=== PATIENT | male | born 1970 | race African-American/Black ===

== ENCOUNTER 2022-11-24 02:19 | Day surgery (SDC) | payer OTHER, SELFPAY ==
[2022-11-23 10:23] VITALS: BMI 50.7
[2022-11-24 07:35] VITALS: BP 152/67; PULSE 66; RESP 18; TEMP 36.1; O2SAT 100; BMI 50.7
--- NOTE | 2022-11-24 07:42 | WPDANESEPPF ---
Anes - Initial Pre Proc Eval Procedure: Operation Date: 11/24/22 08:45 Proposed Procedures p Esophagogastroduodenoscopy & Colonoscopy - William Silverio MD Date/Time: 11/24/22 07:42 Surgeon: William Silverio MD Pre Op Diagnosis: melena, anemia Patient Data Age: 52 Gender: M Height: 1.98 m Weight: 199 kg Allergies Allergy/AdvReac Type Severity Reaction Status Date / Time No Known Allergies Allergy Verified 11/24/22 07:42 Home Medications Medication Instructions Recorded Confirmed Type albuterol sulfate 90 mcg/actuation 2 puff inhalation QID PRN asthma 11/23/22 11/24/22 History aerosol inhaler attack hydrochlorothiazide 25 mg tablet 25 mg PO DAILY 11/23/22 11/24/22 History latanoprost 0.005 % eye drops 1 drp EACH EYE QPM 11/23/22 11/24/22 History lisinopril 20 mg tablet 20 mg PO DAILY 11/23/22 11/24/22 History Patient hx anesthesia problems: none Family hx anesthesia problems: none Results Review: All pre-operative results and documents have been reviewed as part of the pre-operative evaluation. [facility] Past Medical History Medical History (Updated 11/24/22 @ 07:43 by Eduard Dietz MD) Arthritis Asthma Glaucoma HTN (hypertension) Morbid obesity with BMI of 50.0-59.9, adult MIKKI (obstructive sleep apnea) Social History Social History (System 09/10/22 @ 10:28 by Naila Dior) Smoking status: Unknown if ever smoked Substance use: former Substance use type: crack/cocaine Living arrangements: incarcerated Anes - Eval Final PreProcedure Day of Procedure 11/24/22 07:42 Patient weight: morbidly obese Heart: regular rate and rhythm Lungs: clear to auscultation and normal air movement Airway: Mallampati scale class II Neurological: alert and oriented Last oral intake: >/= 8 hours ASA classification: IV Emergent: no Anesthetic plan: proceed Anesthesia type and monitoring: general GIVS Results Review: All pre-operative results and documents have been reviewed as part of the pre-operative evaluation. Informed Consent: The patient's anesthetic plan and its attendant risks and benefits were discussed with the patient/family/POA. Questions were solicited and answers provided to the satisfaction of the patient/family/POA.
[2022-11-24] MEDS: LACTATED RINGERS 1,000 ML 150 ML IV CONT (08:01)
--- NOTE | 2022-11-24 08:25 | PM.HPGS ---
History of Present Illness History of Present Illness Consent: Risks, benefits, and alternatives have been discussed and questions answered. Patient agrees to proceed with procedure. Chief complaint: melena, anemia Narrative: Chuckie Glez is a 52 year old male mild anemia- he was using nsaid's but no anymore- also noted intermittent blood in stools. Never had scopes. He is inmate. Review of Systems Constitutional: Constitutional: Denies headache(s) and Denies weakness Eyes: Eyes: Denies blurry vision ENT: Reports Normal hearing present, Denies headache(s) and Denies neck pain Cardiovascular: Cardiovascular: Denies chest pain and Denies dyspnea Respiratory: Respiratory: Denies dyspnea Gastrointestinal: Gastrointestinal: Reports no additional gastrointestinal complaints Genitourinary: Genitourinary: Denies dysuria Musculoskeletal: Musculoskeletal: Denies neck pain Integumentary/Breasts: Skin/Breast: Denies dry skin Neurologic: Reports Normal hearing present, Denies headache(s) and Denies weakness Psychiatric: Psychiatric: Denies anxiety Endocrine: Endocrine: Denies change in body appearance Hematologic/Lymphatic: Hematologic/Lymphatic: Denies easy bleeding Allergic/Immunologic: Allergic/Immunologic: Denies urticaria PMFSH Past Medical History Medical History (Updated 11/24/22 @ 08:27 by William Silverio MD) Anemia Arthritis Asthma Blood in stool Glaucoma HTN (hypertension) Morbid obesity with BMI of 50.0-59.9, adult MIKKI (obstructive sleep apnea) Social History Social History (System 09/10/22 @ 10:28 by Naila Dior) Smoking status: Unknown if ever smoked Substance use: former Substance use type: crack/cocaine Living arrangements: incarcerated Meds Home Medications and Allergies Home Medications Medication Instructions Recorded Confirmed Type albuterol sulfate 90 mcg/actuation 2 puff inhalation QID PRN asthma 11/23/22 11/24/22 History aerosol inhaler attack hydrochlorothiazide 25 mg tablet 25 mg PO DAILY 11/23/22 11/24/22 History latanoprost 0.005 % eye drops 1 drp EACH EYE QPM 11/23/22 11/24/22 History lisinopril 20 mg tablet 20 mg PO DAILY 11/23/22 11/24/22 History Allergies Allergy/AdvReac Type Severity Reaction Status Date / Time No Known Allergies Allergy Verified 11/24/22 07:42 Vital Signs Vital Signs - 24 hr 11/24/22 07:35 Temperature 97.0 F L Pulse Rate 66 Respiratory Rate 18 Blood Pressure 152/67 H Pulse Oximetry 100 Oxygen Delivery Room Air Exam Const: General: comfortable and no acute distress Other: obese HENMT: Face/Nose/Sinus: Normal nares present Eyes: General: appearance normal, both eyes and all related structures Neck: Neck: no JVD Resp: Auscultation: clear to auscultation bilaterally Cardio: Rate: regular rate Rhythm: regular rhythm GI: Inspection: non-distended GI Palp: Yes Soft to palpation Skin: General skin exam: normal color Neuro: General: gait normal Speech: normal speech Extrem: General: normal to inspection Psych: Mental Status: mental status grossly normal Assessment and Plan Assessment and plan (1) Anemia: Code(s): D64.9 - Anemia, unspecified Status: Acute Assessment and Plan: egd to assess if any gi blood loss (2) Blood in stool: Code(s): K92.1 - Melena Status: Acute Assessment and Plan: ? perianal colonoscopy
--- NOTE | 2022-11-24 08:46 | SUR.OPER ---
EGD END TIME: 836 COLON START TIME: 840
[2022-11-24 08:58] VITALS: BP 120/82; PULSE 71; RESP 21; O2SAT 98
[2022-11-24 09:08] VITALS: BP 128/96; PULSE 66; RESP 20; O2SAT 98
[2022-11-24 09:18] VITALS: BP 156/95; PULSE 67; RESP 20; O2SAT 98
== END 2022-11-24 09:32 | disposition home or self-care (01) ==
PROVIDERS: Visit Provider Internal Medicine Gastroenterology
PROC: 0DJ08ZZ Inspection of Upper Intestinal Tract, Via Natural or Artificial Opening Endoscopic (ICD-10-PCS; CPT 43235; principal; 2022-11-24 08:45)
DX: Z12.11 Encounter for screening for malignant neoplasm of colon (principal); K57.30 Diverticulosis of large intestine without perforation or abscess without bleeding; D12.8 Benign neoplasm of rectum; K64.8 Other hemorrhoids; K92.1 Melena; K29.50 Unspecified chronic gastritis without bleeding; D64.9 Anemia, unspecified; I10 Essential (primary) hypertension; M19.90 Unspecified osteoarthritis, unspecified site; J45.909 Unspecified asthma, uncomplicated; G47.33 Obstructive sleep apnea (adult) (pediatric); H40.9 Unspecified glaucoma; E66.01 Morbid (severe) obesity due to excess calories; Z68.43 Body mass index [BMI] 50.0-59.9, adult; Z79.51 Long term (current) use of inhaled steroids
CPT/HCPCS: 43239; 45385; 88305; J2704; J7120